=== PATIENT | male | born 1965 | race Caucasian/White ===

== ENCOUNTER 2019-11-04 12:32 | Observation (INO) | payer MEDICARE ==
[2019-11-04] VITALS (8 sets, daily range): BP systolic 113–158; BP diastolic 67–90
[~2019-11-04] VITALS: Ht 190.5 cm; Wt 162.0 kg
--- NOTE | 2019-11-04 12:42 | ED Chest Pain ---
General Stated Complaint: CHEST PAIN Source: patient Exam Limitations: no limitations History of Present Illness Date Seen by Provider: Nov 04, 2019 Time Seen by Provider: 12:31 Initial Comments Patient presents to ER by private conveyance from home with chief complaint of 3/10, constant, chest pain substernal nonradiating for the past 2 days. He has not taken anything for the pain. He does have a history of GERD but no history of coronary disease. He has a history of diabetes, cannabis and chewing tobacco use. He says he has high cholesterol, isu-dsvsbhs-snocagnyj DM II, hypertension but no known family history. He has not seen anybody about this chest pain. No history of abdominal or chest surgeries. No trauma. No shortness of air cough fever chills or radiation to his back. He's not having any nausea. He states his sister helps him set up his medicines and is his chief caregiver. He has a distant history of cocaine use 20-30 years ago. He follows with nurse practitioner Jason at . Allergies and Home Medications Allergies Coded Allergies: Penicillins (Verified Allergy, Unknown, 11/04/19) Patient Home Medication List Home Medication List Reviewed: Yes Review of Systems Review of Systems Constitutional: No chills, No fever, No malaise EENTM: No Blurred Vision, No Double Vision Respiratory: Denies Cough, Denies Shortness of Air Cardiovascular: See HPI, Chest Pain; Denies Edema, Denies Irregular Heart Rate, Denies Lightheadedness, Denies Palpitations, Denies Syncope Gastrointestinal: Denies Constipated, Denies Diarrhea, Denies Nausea Musculoskeletal: No back pain, No joint pain Psychiatric/Neurological: Denies Anxiety, Denies Depressed All Other Systems Reviewed Negative Unless Noted: Yes Past Kvdspud-Sytkmm-Tezkak Hx Patient Social History Alcohol Use: Denies Use Recreational Drug Use: No Smoking Status: Never a Smoker Recent Foreign Travel: No Physical Exam Vital Signs Vital Signs - First Documented 11/04/19 12:32 Temp 36.3 Pulse 69 Resp 18 B/P (MAP) 131/70 (90) Pulse Ox 96 O2 Delivery Room Air Capillary Refill : Height, Weight, BMI Height: '" Weight: lbs. oz. kg; BMI Method: General Appearance: No Apparent Distress, Obese HEENT: PERRL/EOMI, Pharynx Normal, Moist Mucous Membranes Neck: Full Range of Motion, Normal Inspection Respiratory: Chest Non Tender, Lungs Clear, Normal Breath Sounds, No Accessory Muscle Use, No Respiratory Distress Cardiovascular: Regular Rate, Rhythm, No Edema, Normal Peripheral Pulses Gastrointestinal: Normal Bowel Sounds, Soft, Tenderness (epigastric region reproduces his symptoms without Fu sign, McBurney's point tenderness, other mesenteric signs.) Extremity: Normal Capillary Refill, Normal Inspection, Normal Range of Motion, Non Tender, No Calf Tenderness Neurologic/Psychiatric: Alert, Oriented x3, No Motor/Sensory Deficits, Normal Mood/Affect Skin: Normal Color, Warm/Dry Progress/Results/Core Measures Results/Orders Lab Results Laboratory Tests Test 11/04/19 12:45 Range/Units White Blood Count 6.0 4.3-11.0 10^3/uL Red Blood Count 3.97 L 4.35-5.85 10^6/uL Hemoglobin 13.2 L 13.3-17.7 G/DL Hematocrit 37 L 40-54 % Mean Corpuscular Volume 94 80-99 FL Mean Corpuscular Hemoglobin 33 25-34 PG Mean Corpuscular Hemoglobin Concent 35 32-36 G/DL Red Cell Distribution Width 13.2 10.0-14.5 % Platelet Count 103 L 130-400 10^3/uL Mean Platelet Volume 11.9 H 7.4-10.4 FL Neutrophils (%) (Auto) 56 42-75 % Lymphocytes (%) (Auto) 32 12-44 % Monocytes (%) (Auto) 7 0-12 % Eosinophils (%) (Auto) 4 0-10 % Basophils (%) (Auto) 1 0-10 % Neutrophils # (Auto) 3.3 1.8-7.8 X 10^3 Lymphocytes # (Auto) 1.9 1.0-4.0 X 10^3 Monocytes # (Auto) 0.4 0.0-1.0 X 10^3 Eosinophils # (Auto) 0.2 0.0-0.3 10^3/uL Basophils # (Auto) 0.1 0.0-0.1 10^3/uL Prothrombin Time 13.7 12.2-14.7 SEC INR Comment 1.0 0.8-1.4 Activated Partial Thromboplast Time 29 24-35 SEC Sodium Level 138 135-145 MMOL/L Potassium Level 4.3 3.6-5.0 MMOL/L Chloride Level 103 98-107 MMOL/L Carbon Dioxide Level 25 21-32 MMOL/L Anion Gap 10 5-14 MMOL/L Blood Urea Nitrogen 10 7-18 MG/DL Creatinine 0.64 0.60-1.30 MG/DL Estimat Glomerular Filtration Rate > 60 BUN/Creatinine Ratio 16 Glucose Level 176 H 70-105 MG/DL Calcium Level 9.2 8.5-10.1 MG/DL Corrected Calcium 9.2 8.5-10.1 MG/DL Magnesium Level 2.0 1.6-2.4 MG/DL Total Bilirubin 0.9 0.1-1.0 MG/DL Aspartate Amino Transf (AST/SGOT) 31 5-34 U/L Alanine Aminotransferase (ALT/SGPT) 22 0-55 U/L Alkaline Phosphatase 53 40-136 U/L Myoglobin 23.8 10.0-92.0 NG/ML Troponin I < 0.30 <0.30 NG/ML Pro-B-Type Natriuretic Peptide 210.6 H <75.0 PG/ML Total Protein 6.6 6.4-8.2 GM/DL Albumin 4.0 3.2-4.5 GM/DL Lipase 20 8-78 U/L My Orders Orders - ALTHEA,JUICE J Cbc With Automated Diff (11/04/19 12:42) Magnesium (11/04/19 12:42) Chest 1 View Ap/Pa Only (11/04/19 12:42) Ekg Tracing (11/04/19 12:42) Comprehensive Metabolic Panel (11/04/19 12:42) Myoglobin Serum (11/04/19 12:42) Protime With Inr (11/04/19 12:42) Partial Thromboplastin Time (11/04/19 12:42) O2 (11/04/19 12:42) Monitor-Rhythm Ecg Trace Only (11/04/19 12:42) Lipid Panel (11/05/19 06:00) Aspirin Chewable Tablet (Baby Aspirin Ch (11/04/19 12:45) Nitroglycerin 0.4 Mg Btl 25's (Nitrostat (11/04/19 12:45) Ed Iv/Invasive Line Start (11/04/19 12:42) Lipase (11/04/19 12:42) Troponin I Fs (11/04/19 12:42) Probnp Fs (11/04/19 12:42) Ticagrelor Tablet (Brilinta Tablet) (11/04/19 14:15) Enoxaparin Injection (Lovenox Injection) (11/04/19 14:15) Enoxaparin Injection (Lovenox Injection) (11/04/19 14:15) Medications Given in ED Current Medications Medications Dose Ordered Sig/Yudy Route Start Time Stop Time Status Last Admin Dose Admin Aspirin 324 mg ONCE ONCE PO 11/04/19 12:45 11/04/19 12:46 DC 11/04/19 12:50 324 MG Nitroglycerin 0.4 mg UD PRN SL 11/04/19 12:45 11/04/19 12:50 0.4 MG Vital Signs/I&O 11/04/19 12:32 Temp 36.3 Pulse 69 Resp 18 B/P (MAP) 131/70 (90) Pulse Ox 96 O2 Delivery Room Air Progress Progress Note #1: Time: 12:45 Progress Note Chest pain workup will start with aspirin and a trial nitroglycerin. If this negrete s not help his symptoms and a GI cocktail would be indicated. ACS versus GERD versus other? Progress Note #2: Time: 13:00 Progress Note Patient states his pain went away completely with a single dose of nitroglycerin tablet. If the initial troponin is negative then his heart score would be 5 points. High risk; 12-65% 30-day MACE; Admit to hospital or observation. Further testing indicated. Initial ECG Impression Date: Nov 04, 2019 Initial ECG Impression Time: 12:35 Initial ECG Rate: 63 Initial ECG Rhythm: Normal Sinus Initial ECG Intervals: Normal Initial ECG Impression: Normal, Nonspecific Changes Initial ECG Comparisson: No Previous ECG Available Comment Normal sinus rhythm without any clinically relevant ST elevation or depression. Diagnostic Imaging Diagonstic Imaging: Xray Plain Films/CT/US/NM/MRI: chest (1v) Comments NAME: LUIS EDUARDO MARTINEZ [facility] REC#: [id number] PT STATUS: REG ER : 1965 PHYSICIAN: JUICE OH MD ADMIT DATE: 11/04/19/ER FS Draft Date of Exam:11/04/19 CHEST 1 VIEW AP/PA ONLY INDICATION: Chest pain. TIME OF EXAM: 12:45 PM. COMPARISON: No prior studies are available for comparison. FINDINGS: The right hemidiaphragm is mildly elevated. There is some linear atelectasis or scarring in the right base. No infiltrates are detected. The pulmonary vascularity is normal. There is no effusion or pneumothorax. The heart size is normal. IMPRESSION: Minimal right basilar atelectasis or scarring. No acute feature is detected. Dictated on workstation # [id number] Dict: 11/04/19 1253 Trans: 11/04/19 [id number] Interpreted by: DAYDAY TOLENTINO MD Electronically signed by: Reviewed: Reviewed by Me Departure Communication (Admissions) Time/Spoke to Admitting Phy: 14:23 Discussed the case with Dr. Purcell and she agrees to observe the patient for ACS. Time/Spoke to Consulting Phy: 14:05 Discussed the case with Dr. Hinds, anesthesiologist assistant. He agrees with the plan to observe, do serial troponins. He like to get an echocardiogram. He suggested we give a bolus dose of Brilinta and Lovenox and they will take it from there. Impression Primary Impression: Acute coronary syndrome without high troponin Disposition: ADMITTED INPATIENT Condition: Stable Admissions Decision to Admit Reason: Admit from ER (General) Decision to Admit/Date: Nov 04, 2019 Time/Decision to Admit Time: 13:45 JUICE OH Nov 04, 2019 12:42
[2019-11-04] MEDS ORDERED: ASPIRIN 81 MG CHEW (CHILDREN'S ASA) PO ONE (12:45)
[2019-11-04] MEDS ORDERED: NITROGLYCERIN 0.4 MG SL TABS BTL 25'S SL PRN (12:45)
[2019-11-04 12:54] LABS: BASOPHILS # (AUTO) 0.1 10^3/uL (0.0-0.1); BASOPHILS % (AUTO) 1 % (0-10); EOSINOPHILS # (AUTO) 0.2 10^3/uL (0.0-0.3); EOSINOPHILS % (AUTO) 4 % (0-10); HEMATOCRIT 37 % (40-54); HEMOGLOBIN 13.2 G/DL (13.3-17.7); LYMPHOCYTES # (AUTO) 1.9 X 10^3 (1.0-4.0); LYMPHOCYTES % (AUTO) 32 % (12-44); MEAN CORPUSCULAR HEMOGLOBIN 33 PG (25-34); MEAN CORPUSCULAR HGB CONC 35 G/DL (32-36); MEAN CORPUSCULAR VOLUME 94 FL (80-99); MEAN PLATELET VOLUME 11.9 FL (7.4-10.4); MONOCYTES # (AUTO) 0.4 X 10^3 (0.0-1.0); MONOCYTES % (AUTO) 7 % (0-12); NEUTROPHILS # (AUTO) 3.3 X 10^3 (1.8-7.8); NEUTROPHILS % (AUTO) 56 % (42-75); PLATELET COUNT 103 10^3/uL (130-400); RED CELL DISTRIBUTION WIDTH 13.2 % (10.0-14.5)
--- NOTE | 2019-11-04 12:55 | Diagnostic Imaging Report ---
INDICATION: Chest pain. TIME OF EXAM: 12:45 PM. COMPARISON: No prior studies are available for comparison. FINDINGS: The right hemidiaphragm is mildly elevated. There is some linear atelectasis or scarring in the right base. No infiltrates are detected. The pulmonary vascularity is normal. There is no effusion or pneumothorax. The heart size is normal. IMPRESSION: Minimal right basilar atelectasis or scarring. No acute feature is detected. Dictated by: Dictated on workstation # [id number]
[2019-11-04 13:16] LABS: PROTHROMBIN TIME PATIENT 13.7 SEC (12.2-14.7)
[2019-11-04 13:49] LABS: BUN/CREATININE RATIO 16; CALCIUM 9.2 MG/DL (8.5-10.1); CARBON DIOXIDE 25 MMOL/L (21-32); CHLORIDE 103 MMOL/L (98-107); CREATININE SERUM 0.64 MG/DL (0.60-1.30); GFR ESTIMATED > 60; GLUCOSE 176 MG/DL (70-105); POTASSIUM 4.3 MMOL/L (3.6-5.0); SODIUM 138 MMOL/L (135-145)
[2019-11-04 13:50] LABS: ALANINE AMINOTRANSFERASE 22 U/L (0-55); ALKALINE PHOSPHATASE 53 U/L (40-136); BILIRUBIN,TOTAL 0.9 MG/DL (0.1-1.0); LIPASE 20 U/L (8-78); TOTAL PROTEIN 6.6 GM/DL (6.4-8.2)
[2019-11-04] MEDS ORDERED: TICAGRELOR 90 MG TABLET (BRILINTA) PO ONE (14:15)
[2019-11-04] MEDS ORDERED: ENOXAPARIN 100 MG/1 ML (LOVENOX) SYR SC ONE ×2 (14:15)
--- OUTSIDE RECORDS SUMMARY | 2019-11-04 14:26 | XMS REPORT | Continuity of Care Document ---
Author Organization Unknown Address Unknown Phone Unavailable Allergies There is no data. Medications There is no data. Problems There is no data. Procedures There is no data. Results Test Result Range A1C - 04/23/19 08:46 HEMOGLOBIN A1c 5.4 % of total Hgb <5.7 A1C - 07/24/19 10:28 HEMOGLOBIN A1c 5.8 % of total Hgb <5.7 VITAMIN B12 - 07/24/19 10:28 VITAMIN B12 700 pg/mL 200-1100 Complete blood count (CBC) with automate d white blood cell (WBC) differential - 11/04/19 12:45 Blood leukocytes automated count (number/volume) 6.0 10*3/uL 4.3-11.0 Blood erythrocytes automated count (number/volume) 3.97 10*6/uL 4.35-5.85 Venous blood hemoglobin measurement (mass/volume) 13.2 g/dL 13.3-17.7 Blood hematocrit (volume fraction) 37 % 40-54 Automated erythrocyte mean corpuscular volume 94 [ foz_us] 80-99 Automated erythrocyte mean corpuscular h emoglobin (mass per erythrocyte) 33 pg 25-34 Automated erythrocyte mean corpuscular h emoglobin concentration measurement (mass/volume) 35 g/dL 32-36 Automated erythrocyte distribution width ratio 13. 2 % 10.0- 14.5 Automated blood platelet count (count/volume) 103 10*3/uL 130-400 Automated blood platelet mean volume measurement 11.9 [foz_us] 7.4-10.4 Automated blood neutrophils/100 leukocytes 56 % 42-75 Automated blood lymphocytes/100 leukocytes 32 % 12-44 Blood monocytes/100 leukocytes 7 % 0-12 Automated blood eosinophils/100 leukocytes 4 % 0-10 Automated blood basophils/100 leukocytes 1 % 0-10 Blood neutrophils automated count (number/volume) 3.3 10*3 1.8-7.8 Blood lymphocytes automated count (number/volume) 1.9 10*3 1.0-4.0 Blood monocytes automated count (number/volume) 0. 4 10*3 0.0-1.0 Automated eosinophil count 0.2 10*3/uL 0 .0-0.3 Automated blood basophil count (count/volume) 0.1 10*3/uL 0.0-0.1 PT panel in platelet poor plasma by coag ulation assay - 11/04/19 12:45 Prothrombin time (PT) in platelet poor plasma by coagu lation assay 13.7 s 12.2-14.7 INR in platelet poor plasma or blood by coagulation as say 1.0 0.8-1.4 Activated partial thromboplastin time (a PTT) in platelet poor plasma bycoagulation assay - 11/04/19 12:45 Activated partial thromboplastin time (a PTT) in platelet poor plasma bycoagulation assay 29 s 24-35 TROPONIN I FS - 11/04/19 12:45 TROPONIN I FS < 0.30 <0.30 PROBNP FS - 11/04/19 12:45 PROBNP FS 210.6 pg/mL <75.0 Comprehensive metabolic panel - 11/04/19 12:45 Serum or plasma sodium measurement (moles/volume) 138 mmol/L 135-145 Serum or plasma potassium measurement (moles/volume) 4.3 mmol/L 3.6-5.0 Serum or plasma chloride measurement (moles/volume) 103 mmol/L 98-107 Carbon dioxide 25 mmol/L 21-32 Serum or plasma anion gap determination (moles/volume) 10 mmol/L 5-14 Serum or plasma urea nitrogen measurement (mass/volume ) 10 mg/dL 7-18 Serum or plasma creatinine measurement (mass/volume) 0.64 mg/dL 0.60-1.30 Serum or plasma urea nitrogen/creatinine mass ratio 16 NRG Serum or plasma creatinine measurement w ith calculation of estimated glomerular filtration rate > NRG Serum or plasma glucose measurement (mass/volume) 176 mg/dL 70-105 Serum or plasma calcium measurement (mass/volume) 9.2 mg/dL 8.5-10.1 Serum or plasma total bilirubin measurement (mass/volu me) 0.9 mg/dL 0.1-1.0 Serum or plasma alkaline phosphatase ioana surement (enzymatic activity/volume) 53 U/L 40-136 Serum or plasma aspartate aminotransfera se measurement (enzymatic activity/volume) 31 U/L 5-34 Serum or plasma alanine aminotransferase measurement (enzymatic activity/volume) 22 U/L 0-55 Serum or plasma protein measurement (mass/volume) 6.6 g/dL 6.4-8.2 Serum or plasma albumin measurement (mass/volume) 4.0 g/dL 3.2-4.5 CALCIUM CORRECTED 9.2 mg/dL 8.5-10.1 Magnesium - 11/04/19 12:45 Magnesium 2.0 mg/dL 1.6-2.4 Myoglobin, serum - 11/04/19 12:45 Myoglobin, serum 23.8 ng/mL 10.0-92.0 Lipase - 11/04/19 12:45 Lipase 20 U/L 8-78 Encounters ACCT No. Visit Date/Time Discharge Status Pt. Type Provider Facility Loc./Unit Complaint [id number] 08/27/2019 11:20:00 08/27/2019 23:59: 59 [facility] Outpatient MATEO [facility] [id number] 07/24/2019 10:00:00 Document Registration [id number] 04/23/2019 08:45:00 Document Registration [id number] 11/04/2019 12:54:00 Document Registration
--- NOTE | 2019-11-04 15:56 | NUR ---
LUIS EDUARDO MARTINEZ Nuha admitted to room CU12-1, with an admitting diagnosis of Chest pain, on 11/04/19 from [place] via cart, accompanied by staff.LUIS EDUARDO MARTINEZ introduced to surroundings, call light, bed controls, phone, TV, temperature control, lights, meal times, smoking policy, visitor policy, side rail policy, bathrooms and showers. Patient Rights given to patient in the handbook. LUIS EDUARDO MARTINEZ verbalizes understanding that [facility] is not responsible for the loss or damage to any personal effects or valuables that are kept in the patients posession during their hospitalization. The following Patient Care Plans were discussed with the pt: Discharge Planning. LUIS EDUARDO MARTINEZ verbalizes understanding of Interdisciplinary Patient Education. Patient and/or family were informed about the Rapid Response Team and its purpose.
[2019-11-04] MEDS ORDERED: ACETAMINOPHEN 500 MG TAB (TYLENOL) PO PRN (16:15)
[2019-11-04] MEDS ORDERED: ANTACID SUSP 30 ML UDC (MYLANTA) PO PRN (16:15)
[2019-11-04] MEDS ORDERED: ONDANSETRON 4 MG/2 ML (SDV) Z0FRAN IVP PRN ×2 (16:30→20:30)
[2019-11-04] MEDS ORDERED: morphine INJ 4 MG/ML 1 ML (VIAL/SYRINGE) IV PRN (16:30)
--- OUTSIDE RECORDS SUMMARY | 2019-11-04 17:09 | XMS REPORT | Continuity of Care Document ---
[...] Status Pt. Type Provider Facility Loc./Unit Complaint [id number] 08/27/2019 11:20:00 08/27/2019 23:59: 59 [facility] Outpatient MATEO [facility] [id number] 07/24/2019 10:00:00 Document Registration [id number] 04/23/2019 08:45:00 Document Registration [id number] 11/04/2019 12:54:00 Document Registration
[2019-11-04] MEDS: NITROGLYCERIN 0.4 MG SL TABS BTL 25'S SL PRN ×2 (17:18→19:19)
--- NOTE | 2019-11-04 19:20 | NUR ---
PT COMPLAINING OF CHEST PAIN RATING 3/10. NITRO GIVEN AT THIS TIME.
--- NOTE | 2019-11-04 19:27 | Consultation-Cardiology ---
HPI-Cardiology Cardiology Consultation: Date of Consultation 11/04/19 Date of Admission Attending Physician Nadya Purcell DO Admitting Physician [facility] Consulting Physician Glenn HINDS MD HPI: Time Seen by a Provider: 17:15 Chief Complaint: Chest pain This is a 53-year-old gentleman who has morbid obesity, diabetes, chews tobacco, hyperlipidemia, hypertension. Denies any significant family history. He presents with constant chest pain for the last 2-3 days. 07/28. Nonradiating. No associated other cardiac complaints. No exacerbating or relieving factors. Review of Systems-Cardiology Review of Systems Constitutional: As described under HPI; No As described under HPI, No no symptoms reported, No chills, No fever, No lightheadedness Eyes: No As described under HPI, No no symptoms reported, No blindness, No blurred vision, No contact lenses, No drainage, No decreased acuity, No foreign body sensation, No pain, No vision change Ears/Nose/Throat: No As described under HPI, No no symptoms reported, No chronic hearing loss, No ear discharge, No ear pain, No nasal drainage, No ulcerations Respiratory: No no symptoms reported; As described under HPI; No As described under HPI, No cough, No orthopnea, No shortness of breath, No SOB with excertion Cardiovascular: No no symptoms reported; As described under HPI; No As described under HPI; chest pain; No edema, No irregular heart rate, No lightheadedness, No palpitations Gastrointestinal: No no symptoms reported, No As described under HPI, No abdomen distended, No abdominal pain, No blood streaked bowels, No constipation, No diarrhea, No nausea, No vomiting, No stool coloration changes Genitourinary: No As described under HPI, No burning, No dysuria, No discharge, No frequency, No flank pain, No hematuria, No urgency Skin: No rash, No skin related problems, No ulcerations Psychiatric/Neurological: No anxiety, No depression, No seizure, No focal weakness, No syncope Hematologic: No bleeding abnormalities All Other Systems Reviewed Negative Unless Noted: Yes VQQ-Gerdbs-Vruvso Hx Patient Social History Alcohol Use: Denies Use Recreational Drug Use: No Drug of Choice: Hx marijuana Smoking Status: Never a Smoker 2nd Hand Smoke Exposure: No Recent Foreign Travel: No Recent Infectious Disease Expo: No Past Medical History PMH As described under Assessment. Allergies and Home Medications Allergies Coded Allergies: Penicillins (Verified Allergy, Unknown, 11/04/19) Home Medications No Active Prescriptions or Reported Meds Patient Home Medication List Home Medication List Reviewed: Yes Physical Exam-Cardiology Physical Exam Vital Signs/I&O 11/05/19 11/05/19 11/05/19 11/05/19 03:09 03:10 04:21 07:20 Temp 36.6 36.2 Pulse 76 73 Resp 25 14 B/P (MAP) 160/86 (110) 128/69 (88) Pulse Ox 94 96 O2 Delivery Room Air Room Air 11/05/19 11/05/19 11/05/19 11/05/19 07:20 08:00 08:00 08:30 Temp 36.1 Pulse 77 Resp 11 B/P (MAP) 154/90 (111) Pulse Ox 95 95 O2 Delivery Room Air Room Air Room Air 11/05/19 12:00 Pulse 87 Resp 20 B/P (MAP) 164/93 (116) O2 Delivery Room Air 11/05/19 00:00 Intake Total 700 ml Output Total 800 ml Balance -100 ml Capillary Refill : Less Than 3 Seconds Constitutional: appears stated age, AAO x 3; No apparent distress; well- developed, well-nourished HEENT: PERRL; No discharge; hearing is well preserved, oral hygience is good; No ulceration, No xanthelasmas are seen Neck: No carotid bruit; carotid pulses are 2 + bilaterally Respiratory: chest is bilaterally symmetric, lungs clear to auscultation Cardiovascular: regular rate-rhythm, S1 and S2; No diastolic murmur, No systolic murmur Gastrointestinal: soft, audible bowel sounds; No spleenomegaly Rectal: deferred Extremities: normal range of motion, non-tender, normal inspection; No clubbing, No cyanosis; no lower extremity edema bilateral; No significant edema Neurologic/Psychiatric: no motor/sensory deficits, alert, normal mood/affect, oriented x 3, power is 5/5 both on sides Skin: normal color, warm/dry; No rash, No ulcerations Data Review Labs Laboratory Tests 11/04/19 19:08: Troponin I < 0.028 11/04/19 20:07: Glucometer 101 11/05/19 01:08: Troponin I < 0.028, White Blood Count 6.8, Red Blood Count 4.15L, Hemoglobin 13.6, Hematocrit 39L, Mean Corpuscular Volume 93, Mean Corpuscular Hemoglobin 33, Mean Corpuscular Hemoglobin Concent 35, Red Cell Distribution Width 13.7, Platelet Count 94L, Mean Platelet Volume 11.4H, Neutrophils (%) (Auto) 60, Lymphocytes (%) (Auto) 29, Monocytes (%) (Auto) 7, Eosinophils (%) (Auto) 4, Basophils (%) (Auto) 1, Neutrophils # (Auto) 4.1, Lymphocytes # (Auto) 2.0, Monocytes # (Auto) 0.5, Eosinophils # (Auto) 0.2, Basophils # (Auto) 0.0, Sodium Level 138, Potassium Level 3.8, Chloride Level 105, Carbon Dioxide Level 24, Anion Gap 9, Blood Urea Nitrogen 11, Creatinine 0.72, Estimat Glomerular Filtration Rate > 60, BUN/Creatinine Ratio 15, Glucose Level 135H, Calcium Level 8.9, Corrected Calcium 9.0, Total Bilirubin 1.2H, Aspartate Amino Transf (AST/SGOT) 28, Alanine Aminotransferase (ALT/SGPT) 23, Alkaline Phosphatase 51, Total Protein 6.6, Albumin 3.9, Triglycerides Level 247H, Cholesterol Level 112, LDL Cholesterol Direct 53, VLDL Cholesterol 49H, HDL Cholesterol 33L 11/05/19 11:25: Glucometer 238H ECG Impression ECG Initial ECG Rhythm: Normal Sinus Initial ECG Impression: Normal A/P-Cardiology Assessment/Admission Diagnosis Prolonged chest pain, Diabetes, Hypertension, Hyperlipidemia, Tobacco use, Morbid obesity. Plan Prolonged chest pain, first troponin negative. Serial troponin. EKG does not reveal any acute ST-T wave abnormalities. Echocardiogram. Dual antiplatelet therapy, Lovenox. If serial troponin are negative. We will schedule nuclear stress test. Diabetes, deferred to the primary team. Hypertension, well controlled. Hyperlipidemia, LDL and reasonable range. Tobacco use, cessation was strongly recommended. Morbid obesity. Thank you for your consultation. Please call me if you have any questions. Roz Hinds MD, FACP, FACC, FSCAI, FHRS, CCDS Interventional Cardiology Cardiac Electrophysiology Vascular Medicine and Endovascular Interventions Clinical Quality Measures AMI/AHF: ASA po Prior to arrival: No DVT/VTE Risk/Contraindication: Risk Factor Score Per Nursin RFS Level Per Nursing on Admit: 2=Moderate Glenn HINDS MD Nov 04, 2019 19:27
[2019-11-04] MEDS: TICAGRELOR 90 MG TABLET (BRILINTA) PO SCH (19:46)
[2019-11-04] MEDS ORDERED: REGADENOSON 0.4 MG/5 ML SYR (LEXISCAN) IV ONE (20:00)
[2019-11-04] MEDS: inSUlin ASPART (NovoLOG) 1 UNIT/0.01 ML (CHARGE PER UNIT) SC SCH (20:07)
[2019-11-04] MEDS ORDERED: ALPRAZolam 0.25 MG (XANAX) TAB PO PRN (20:30)
[2019-11-04] MEDS ORDERED: HYDROcodone/APAP 5 MG/325 MG (LORTAB) TAB PO PRN (20:30)
[2019-11-04] MEDS ORDERED: MELATONIN 3 MG TABLET PO PRN (20:30)
[2019-11-04] MEDS ORDERED: diphenhydrAMINE 25 MG TAB (BENADRYL) PO PRN (20:30)
[2019-11-04] MEDS ORDERED: DOCUSATE SODIUM 100 MG (COLACE) CAP PO PRN (20:30)
[2019-11-04] MEDS: SENNA W/DOCUSATE (SENOKOT S) TABLET PO SCH (20:35)
[2019-11-05] VITALS: BP 154/89
[2019-11-05 01:18] LABS: BASOPHILS % (AUTO) 1 % (0-10); EOSINOPHILS # (AUTO) 0.2 10^3/uL (0.0-0.3); EOSINOPHILS % (AUTO) 4 % (0-10); HEMATOCRIT 39 % (40-54); HEMOGLOBIN 13.6 G/DL (13.3-17.7); LYMPHOCYTES % (AUTO) 29 % (12-44); MEAN CORPUSCULAR HEMOGLOBIN 33 PG (25-34); MEAN CORPUSCULAR HGB CONC 35 G/DL (32-36); MEAN CORPUSCULAR VOLUME 93 FL (80-99); MEAN PLATELET VOLUME 11.4 FL (7.4-10.4); MONOCYTES # (AUTO) 0.5 X 10^3 (0.0-1.0); MONOCYTES % (AUTO) 7 % (0-12); NEUTROPHILS # (AUTO) 4.1 X 10^3 (1.8-7.8); NEUTROPHILS % (AUTO) 60 % (42-75); PLATELET COUNT 94 10^3/uL (130-400); RED CELL DISTRIBUTION WIDTH 13.7 % (10.0-14.5); WHITE BLOOD COUNT 6.8 10^3/uL (4.3-11.0)
[2019-11-05 01:28] LABS: ALBUMIN 3.9 GM/DL (3.2-4.5); CHLORIDE 105 MMOL/L (98-107); POTASSIUM 3.8 MMOL/L (3.6-5.0); SODIUM 138 MMOL/L (135-145)
[2019-11-05 01:29] LABS: CALCIUM 8.9 MG/DL (8.5-10.1)
[2019-11-05 01:30] LABS: TOTAL PROTEIN 6.6 GM/DL (6.4-8.2); TRIGLYCERIDES 247 MG/DL (<150); VLDL CHOLESTEROL 49 MG/DL (5-40)
[2019-11-05 01:31] LABS: GLUCOSE 135 MG/DL (70-105)
[2019-11-05 01:32] LABS: BILIRUBIN,TOTAL 1.2 MG/DL (0.1-1.0); CARBON DIOXIDE 24 MMOL/L (21-32)
[2019-11-05 01:34] LABS: ALKALINE PHOSPHATASE 51 U/L (40-136); CREATININE SERUM 0.72 MG/DL (0.60-1.30); GFR ESTIMATED > 60
[2019-11-05 01:35] LABS: BUN/CREATININE RATIO 15; CHOLESTEROL 112 MG/DL (< 200)
[2019-11-05 01:36] LABS: HDL CHOLESTEROL 33 MG/DL (40-60)
[2019-11-05 01:37] LABS: ALANINE AMINOTRANSFERASE 23 U/L (0-55)
[2019-11-05] MEDS ORDERED: ENOXAPARIN 100 MG/1 ML (LOVENOX) SYR SC SCH ×2 (02:15)
[2019-11-05 04:21] VITALS: BP 160/86
[2019-11-05] MEDS: inSUlin ASPART (NovoLOG) 1 UNIT/0.01 ML (CHARGE PER UNIT) SC SCH ×2 (05:23→11:35)
[2019-11-05 07:20] VITALS: BP 128/69
[2019-11-05 08:00] VITALS: BP 154/90
[2019-11-05] MEDS ORDERED: CATHETER FLUSH 10 ML SYR IV PRN (08:30)
[2019-11-05] MEDS ORDERED: ASPIRIN E.C. 81 MG (ECOTRIN) TAB PO SCH (09:00)
[2019-11-05] MEDS ORDERED: REGADENOSON 0.4 MG/5 ML SYR (LEXISCAN) IV ONE (09:08)
--- NOTE | 2019-11-05 10:12 | Short Stay Summary-Hospitalist ---
History of Present Illness HPI/Chief Complaint CC: Chest Pain HPI: This is a 53yoWM who presented with chest pain and some risk factors so he was taken for stress test by cardiology deemed stable by DC and he was DC in stable improved condition. Source: patient Date Seen 11/05/19 Time Seen by a Provider: 10:00 Attending Physician Nadya Purcell DO [facility] Referring Physician Date of Admission Nov 04, 2019 at 14:35 Home Medications & Allergies Home Medications Reviewed patient Home Medication Reconciliation performed by pharmacy medication reconciliations apartment maintenance technician and/or nursing. Patients Allergies have been reviewed. Allergies Allergies Coded Allergies Penicillins (Verified Allergy, Unknown, 11/04/19) Past Hejvyhj-Wtfknc-Eumrpi Hx Past Med/Social Hx: Reviewed Nursing Past Med/Soc Hx, Reviewed and Corrections made Patient Social History Marrital Status: single Employed/Student: unemployed Alcohol Use: Denies Use Recreational Drug Use: No Drug of Choice: Hx marijuana Smoking Status: Never a Smoker 2nd Hand Smoke Exposure: No Recent Foreign Travel: No Contact w/other who traveled: No Recent Hopitalizations: No Recent Infectious Disease Expo: No Seasonal Allergies Seasonal Allergies: No Past Medical History Cardiac: High Cholesterol, Hypertension Gastrointestinal: Gastroesophageal Reflux Endocrine: Diabetes, Non-Insulin dep History of Blood Disorders: No Review of Systems Constitutional: see HPI Cardiovascular: chest pain Physical Exam Physical Exam Vital Signs Vital Signs - First Documented 11/04/19 12:32 Temp 36.3 Pulse 69 Resp 18 B/P (MAP) 131/70 (90) Pulse Ox 96 O2 Delivery Room Air Capillary Refill : Less Than 3 Seconds Height, Weight, BMI Height: '" Weight: lbs. oz. kg; 44.58 BMI Method: General Appearance: No Apparent Distress, Obese HEENT: PERRL/EOMI, Pharynx Normal, Moist Mucous Membranes Neck: Full Range of Motion, Normal Inspection Respiratory: Chest Non Tender, Lungs Clear, Normal Breath Sounds, No Accessory Muscle Use, No Respiratory Distress Cardiovascular: Regular Rate, Rhythm, No Edema, Normal Peripheral Pulses Gastrointestinal: Normal Bowel Sounds, Soft, Tenderness (epigastric region reproduces his symptoms without Fu sign, McBurney's point tenderness, other mesenteric signs.) Extremity: Normal Capillary Refill, Normal Inspection, Normal Range of Motion, Non Tender, No Calf Tenderness Neurologic/Psychiatric: Alert, Oriented x3, No Motor/Sensory Deficits, Normal Mood/Affect Skin: Normal Color, Warm/Dry Results Results/Procedures Labs Laboratory Tests 11/04/19 12:45 11/05/19 01:08 Patient resulted labs reviewed. Short Stay Diagnosis Discharge Diagnosis-Short Stay Admission Diagnosis Chest pain Final Discharge Diagnosis Chest pain r/o ACS Conclusion Plan DC Diagnosis/Problems Diagnosis/Problems (1) Chest pain Clinical Quality Measures AMI/AHF: ASA po Prior to arrival: No DVT/VTE Risk/Contraindication: Risk Factor Score Per Nursin RFS Level Per Nursing on Admit: 2=Moderate NADYA PURCELL DO Nov 05, 2019 10:12
--- NOTE | 2019-11-05 11:24 | NUR ---
Patient back from [facility] for stress test. Morning medications administered att.
[2019-11-05] MEDS: SENNA W/DOCUSATE (SENOKOT S) TABLET PO SCH (11:30)
[2019-11-05] MEDS: TICAGRELOR 90 MG TABLET (BRILINTA) PO SCH (11:30)
[2019-11-05 12:00] VITALS: BP 164/93
--- NOTE | 2019-11-05 13:18 | Cardiology Progress Note ---
Cardiology SOAP Progress Note Subjective: No further cardiac complaints. Objective: I&O/Vital Signs 11/05/19 11/05/19 11/05/19 11/05/19 03:09 03:10 04:21 07:20 Temp 36.6 36.2 Pulse 76 73 Resp 25 14 B/P (MAP) 160/86 (110) 128/69 (88) Pulse Ox 94 96 O2 Delivery Room Air Room Air 11/05/19 11/05/19 11/05/19 11/05/19 07:20 08:00 08:00 08:30 Temp 36.1 Pulse 77 Resp 11 B/P (MAP) 154/90 (111) Pulse Ox 95 95 O2 Delivery Room Air Room Air Room Air 11/05/19 12:00 Pulse 87 Resp 20 B/P (MAP) 164/93 (116) O2 Delivery Room Air 11/05/19 00:00 Intake Total 700 ml Output Total 800 ml Balance -100 ml Constitutional: appears stated age, AAO x 3; No apparent distress; well- developed, well-nourished Respiratory: chest is bilaterally symmetric, lungs clear to auscultation Cardiovascular: regular rate-rhythm, S1 and S2; No diastolic murmur, No systolic murmur Gastrointestional: soft, audible bowel sounds; No spleenomegaly Extremities: normal range of motion, non-tender, normal inspection; No clubbing, No cyanosis; no lower extremity edema bilateral; No significant edema Neurologic/Psychiatric: no motor/sensory deficits, alert, normal mood/affect, oriented x 3, power is 5/5 both on sides Skin: normal color, warm/dry; No rash, No ulcerations Results/Procedures: Labs Laboratory Tests 11/04/19 19:08: Troponin I < 0.028 11/04/19 20:07: Glucometer 101 11/05/19 01:08: Troponin I < 0.028, White Blood Count 6.8, Red Blood Count 4.15L, Hemoglobin 13.6, Hematocrit 39L, Mean Corpuscular Volume 93, Mean Corpuscular Hemoglobin 33, Mean Corpuscular Hemoglobin Concent 35, Red Cell Distribution Width 13.7, Platelet Count 94L, Mean Platelet Volume 11.4H, Neutrophils (%) (Auto) 60, Lymphocytes (%) (Auto) 29, Monocytes (%) (Auto) 7, Eosinophils (%) (Auto) 4, Basophils (%) (Auto) 1, Neutrophils # (Auto) 4.1, Lymphocytes # (Auto) 2.0, Monocytes # (Auto) 0.5, Eosinophils # (Auto) 0.2, Basophils # (Auto) 0.0, Sodium Level 138, Potassium Level 3.8, Chloride Level 105, Carbon Dioxide Level 24, Anion Gap 9, Blood Urea Nitrogen 11, Creatinine 0.72, Estimat Glomerular Filtration Rate > 60, BUN/Creatinine Ratio 15, Glucose Level 135H, Calcium Level 8.9, Corrected Calcium 9.0, Total Bilirubin 1.2H, Aspartate Amino Transf (AST/SGOT) 28, Alanine Aminotransferase (ALT/SGPT) 23, Alkaline Phosphatase 51, Total Protein 6.6, Albumin 3.9, Triglycerides Level 247H, Cholesterol Level 112, LDL Cholesterol Direct 53, VLDL Cholesterol 49H, HDL Cholesterol 33L 11/05/19 11:25: Glucometer 238H A/P: Assessment/Dx: Prolonged chest pain, Diabetes, Hypertension, Hyperlipidemia, Tobacco use, Morbid obesity. Plan: Prolonged chest pain, first troponin negative. Serial troponin. EKG does not reveal any acute ST-T wave abnormalities. Echocardiogram. Dual antiplatelet therapy, Lovenox. If serial troponin are negative. Nuclear stress test done this morning showed no evidence of inducible ischemia or old infarct. Echocardiogram showed normal LV function with no valvular heart disease. Acute coronary syndrome and significant coronary artery disease has been ruled out. Patient can be discharged to follow with primary team. I'll be happy to see the patient in a month if required. Diabetes, deferred to the primary team. Hypertension, well controlled. Hyperlipidemia, LDL and reasonable range. Tobacco use, cessation was strongly recommended. Morbid obesity. Thank you for your consultation. Please call me if you have any questions. Roz Hinds MD, FACP, FACC, FSCAI, FHRS, CCDS Interventional Cardiology Cardiac Electrophysiology Vascular Medicine and Endovascular Interventions Clinical Quality Measures AMI/AHF: ASA po Prior to arrival: Glenn Gustafson MD Nov 05, 2019 13:18
--- NOTE | 2019-11-05 13:45 | NUR ---
IV removed by this nurse, tip intact. Entire discharge packet discussed with patient. Patient stated that he does not have any further questions att. Patient advised to follow up with primary care physician. This nurse relayed to patient per if he wanted to follow up with in 2-3 weeks he can, to just call and make an appointment, but att his troponin remains negative and his stress test was negative as well, patients nods showing agreement. Patient states that he does not have any further questions att, that all of his questions have been answered. VSS. [id number] patient leaving floor with Meron NT, Meron took patient by wheel chair to front entrance. Patients sister is his ride home by private vehicle.
--- NOTE | 2019-11-05 14:50 | Cardiology Stress Test Report ---
Stress Test Report Type of NM Stress Test: Test Type: LEXISCAN 0.4MG/5ML Date of Procedure/Referring: Date of Procedure: Nov 05, 2019 PCP Nadya Purcell DO Admitting Physician [facility] Indications: Chest pain Baseline Heart Rate: 82 Baseline Blood Pressure: Blood Pressure Systolic: 164 Blood Pressure Diastolic: 93 Baseline EKG: Baseline EKG: sinus rhythm with PVCs Summary & Conclusion: Summary: The patient was brought to the stress lab after informed consent was taken. Stress test was performed according to the Lexiscan protocol. 0.4 mg of IV Lexiscan was given. Low-grade exercise was performed. Baseline EKG showed sinus rhythm at 82 bpm, blood pressure 156/83 mmHg. Maximum heart rate of 106 bpm and blood pressure 130/85 mmHg Patient did not have any chest pain, arrhythmias or ST segment changes during the stress test. 10.52 mCi of Myoview were given for rest imaging and 31.7 mCi of Myoview given for stress imaging. Transient ischemic dilatation score 0.83, EF 71 percent. Normal wall motion. Normal myocardial perfusion imaging during rest and stress. Conclusion: Pharmacological stress test was negative for ischemia. Normal LV function with no wall motion abnormalities. Normal myocardial perfusion imaging during rest and stress. Glenn DURAN MD Nov 05, 2019 14:50
== END 2019-11-05 13:45 | disposition home or self-care (01) ==
LOC: EDUNIT# 12:32 → ER FS 12:34 → ICU 14:35
PROVIDERS: ADMIT Internal Medicine; ATTEND Internal Medicine
DX: R07.9 Chest pain, unspecified (principal); K21.9 Gastro-esophageal reflux disease without esophagitis; E11.9 Type 2 diabetes mellitus without complications; E78.00 Pure hypercholesterolemia, unspecified; I10 Essential (primary) hypertension; E66.01 Morbid (severe) obesity due to excess calories; E78.5 Hyperlipidemia, unspecified; F17.220 Nicotine dependence, chewing tobacco, uncomplicated; Z88.0 Allergy status to penicillin; Z68.41 Body mass index [BMI] 40.0-44.9, adult
CPT/HCPCS: 36415; 71045; 78452; 80053 ×2; 80061; 82962 ×2; 83690; 83735; 83874; 83880; 84484 ×3; 85025 ×2; 85610; 85730; 93005 ×2; 93017; 93041; 93306; 99285; A9502